=== PATIENT | male | born 1990 | race American Indian/Alaskan Native ===

== ENCOUNTER 2021-08-31 14:44 | Emergency (ER) | payer SELFPAY ==
[2021-08-31] MEDS ORDERED: ONDANSETRON 4 MG ODT TAB PO ONE (16:03)
[2021-08-31] MEDS ORDERED: KETOROLAC 60 MG/2 ML INJ IM ONE (16:03)
[2021-08-31] MEDS ORDERED: oxyCODONE /ACETAMINOPHEN 5-325MG TAB PO ONE (16:04)
--- NOTE | 2021-08-31 18:25 | Cat Scan Report ---
CT facial bones wo con INDICATION: pain and swelling. TECHNIQUE: CT face. All CT scans at this location are performed using CT dose reduction for ALARA by means of automated exposure control. COMPARISON: None. FINDINGS: Mandible: Minimally displaced fracture of the body of the mandible on the left side, bordering [place]er[place] paty tooth number #17. Fracture is not involving #17. Soft tissue swelling. Second fracture even less displaced through the right side of symphisis menti. No fracture involving the condylar heads are robyn us. However, focal cortical bony defect in the right condylar head. Dental caries bilaterally; Fracture tooth #19; root abscess around 34 Facial bones: Central midface: Nasal bones: Normal; perpendicular plate of ethmoid: Normal; no soft tissue swelling around th e nasal septal cartilage Nasoorbitoethmoid: Normal Lateral midface: Orbit: Normal Zygomaticomaxillary complex: Hypoplastic; no fracture Zygomatic arch: Normal TMJ: Normal Sinuses: Retention cyst in the inferior left maxillary sinus. Orbits: Globes are intact. Additional findings:No other significant abnormality. IMPRESSION: Fracture of the mandible 2places; right side of midline near the symphysis menti and on the left jenni e the posterior body of the mandible posterior to the interrupted #17 Signer Name: Rene Beyer MD Signed: 08/31/2021 6:20 PM Workstation Name: [id number]
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
[2021-08-31 18:46] VITALS: BP 162/102
== END 2021-08-31 18:46 | disposition home or self-care (01) ==
LOC: ED 14:44
DX: S02.609A Fracture of mandible, unspecified, initial encounter for closed fracture (principal); X58.XXXA Exposure to other specified factors, initial encounter; Y93.89 Activity, other specified; Y92.89 Other specified places as the place of occurrence of the external cause; Y99.8 Other external cause status; I10 Essential (primary) hypertension
CPT/HCPCS: 70486; 96372; 99283; J1885; J3490; Q0162